=== PATIENT | female | born 1955 | race Caucasian/White ===

== ENCOUNTER → 2020-12-20 | Outpatient (REF) | payer BC ==
[~2020-12-20] MED LIST: ATOR1TAB19 PO; LISI20TA20 PO; OMEP40CA4 PO
== END ==
LOC: M SFHCWAGY 13:10
PROVIDERS: ATTEND Obstetrics & Gynecology
DX: N95.0 Postmenopausal bleeding (principal)

== ENCOUNTER → 2021-03-16 | Outpatient (CLI) | payer BC ==
[~2021-03-16] MED LIST changes: +MEDR10TA PO
== END ==
LOC: M LABSMTC 11:33
PROVIDERS: ATTEND Anesthesiology
DX: Z01.818 Encounter for other preprocedural examination (principal); Z11.52 Encounter for screening for COVID-19

== ENCOUNTER 2021-03-21 07:35 | Day surgery (SDC) | payer BC ==
[~2021-03-21] VITALS: Ht 165.1 cm; Wt 106.6 kg
[~2021-03-21 07:35] MED LIST changes: -LISI20TA20 PO; +LISI20TA37 PO; +LR 1,000 ML IV ONE
[2021-03-21 08:12] LABS: HEMATOCRIT 40.1 % (36.0-47.0); HEMOGLOBIN 13.1 g/dl (12.0-15.5); MEAN CORPUSCULAR HEMOGLOBIN 31.9 pg (27.0-33.0); MEAN CORPUSCULAR HGB CONC 32.7 g/dl (32.0-36.5); MEAN CORPUSCULAR VOLUME 97.6 fl (80.0-96.0); PLATELET COUNT, AUTOMATED 237 10^3/uL (150-450); RED BLOOD COUNT 4.11 10^6/uL (4.00-5.40); WHITE BLOOD COUNT 7.8 10^3/uL (4.0-10.0)
[2021-03-21] MEDS ORDERED: BUPIVACAINE HCL 0.25% 30ML VIAL As Ordered ONE (09:49)
[2021-03-21] MEDS ORDERED: METHYLENE BLUE 0.5% (5MG/ML) 10 ML AMP (PROVAYBLUE) As Ordered ONE (09:49)
[2021-03-21] MEDS ORDERED: ceFAZolin SOD 2 GM in IV 1 EA IV ONE (09:50)
[2021-03-21] MEDS ORDERED: ceFAZolin 2 GM/D5W 50 ML IV BAG (J0690 PER 500MG) As Ordered ONE (10:15)
[2021-03-21] MEDS ORDERED: ONDANSETRON 4MG/2ML VIAL As Ordered ONE (10:30)
[2021-03-21] MEDS ORDERED: ROCURONIUM BROMIDE 50 MG/5 ML VIAL As Ordered ONE (10:30)
[2021-03-21] MEDS ORDERED: fentaNYL 250 MCG/5 ML INJECTION As Ordered ONE (10:30)
[2021-03-21] MEDS ORDERED: MIDAZOLAM INJ 2MG/2ML VIAL (J2250 PER 1MG) As Ordered ONE (10:30)
[2021-03-21] MEDS ORDERED: propofoL 200 MG/20 ML VIAL As Ordered ONE (10:30)
[2021-03-21] MEDS ORDERED: LIDOCAINE 2% 100MG/5ML SDV (FOR ANES.) As Ordered ONE (10:30)
[2021-03-21] MEDS ORDERED: SUGAMMADEX SODIUM 500 MG/5 ML VIAL (BRIDION) As Ordered ONE (10:30)
[2021-03-21] MEDS ORDERED: METOCLOPRAMIDE INJ 10MG/2ML VIAL (J2765 PER 1) As Ordered ONE (10:30)
[2021-03-21] MEDS ORDERED: dexameTHASONE 4 MG/ML 1ML VIAL (J1100 PER 1MG) As Ordered ONE (10:30)
[2021-03-21] MEDS ORDERED: KETOROLAC 60MG 2ML VIAL As Ordered ONE (10:30)
[2021-03-21] MEDS ORDERED: ACETAMINOPHEN 1000MG 100ML IV BTL (OFIRMEV) (J0131 PER 10MG) As Ordered ONE (10:36)
[2021-03-21] MEDS ORDERED: PHENYLephrine 500MCG 5ML (100MCG/ML) SYRINGE As Ordered ONE (10:42)
[2021-03-21] MEDS ORDERED: HYDROmorphone HCL 2MG/ML 1ML VIAL As Ordered ONE (11:39)
[2021-03-21] MEDS ORDERED: DESFLURANE 240 ML INHALANT As Ordered ONE (11:54)
[2021-03-21] MEDS ORDERED: oxyCODONE 5MG TAB PO PRN (12:30)
[2021-03-21] MEDS ORDERED: fentaNYL 100 MCG/2 ML INJECTION IV PRN (12:30)
[2021-03-21] MEDS ORDERED: ONDANSETRON 4MG/2ML VIAL IV PRN (12:30)
[2021-03-21] MEDS ORDERED: HYDROMORPHONE HCL 0.5 MG/ 0.5 ML SYRINGE (J1170 PER 1) IV PRN (12:30)
[2021-03-21] MEDS ORDERED: LR 1,000 ML IV SCH (12:30)
[2021-03-21] MEDS ORDERED: PROMETHAZINE INJ 25 MG/ML VIAL (J2550) IV PRN (12:40)
[2021-03-21] MEDS ORDERED: PERCOCET 5MG/325MG TAB PO PRN ×2 (12:40)
[2021-03-21 16:45] VITALS: BP 155/84
[2021-03-21] MEDS ORDERED: KETOROLAC 30 MG/ML 1ML VIAL IV SCH (18:00)
== END 2021-03-21 17:10 | disposition home or self-care (01) ==
LOC: M SDC 07:35
PROVIDERS: ATTEND Obstetrics & Gynecology
DX: N85.00 Endometrial hyperplasia, unspecified (principal); N88.8 Other specified noninflammatory disorders of cervix uteri; D25.9 Leiomyoma of uterus, unspecified; Z88.1 Allergy status to other antibiotic agents; Z88.6 Allergy status to analgesic agent
CPT/HCPCS: 36415; 58571; 85027; 86850; 86900; 86901; 88307; J0131; J0690; J1100; J1170; J1885; J2250; J2370; J2405; J2765; J3010; S2900

== ENCOUNTER → 2024-05-16 | Outpatient (CLI) | payer BC ==
[~2024-05-16] MED LIST changes: -LR 1,000 ML IV ONE; -MEDR10TA PO; +MEDR10TA9 PO
== END ==
LOC: M SLEEP HO 11:41
PROVIDERS: ATTEND Internal Medicine Cardiovascular Disease
DX: I50.9 Heart failure, unspecified (principal); G47.33 Obstructive sleep apnea (adult) (pediatric)

== ENCOUNTER → 2024-05-16 | Outpatient (CLI) | payer BC | LOC: M EKG 11:43 | PROVIDERS: ATTEND Internal Medicine Cardiovascular Disease | DX: I49.1 Atrial premature depolarization (principal) ==

== ENCOUNTER → 2024-06-19 | Outpatient (CLI) | payer BC | LOC: M CARPUL 09:57 | PROVIDERS: ATTEND Internal Medicine Cardiovascular Disease | DX: R94.31 Abnormal electrocardiogram [ECG] [EKG] (principal) ==